=== PATIENT | male | born 1995 | race Caucasian/White ===

== ENCOUNTER 2016-12-10 14:34 | Emergency (ER) | payer MEDICAID ==
[~2016-12-10] VITALS: Ht 198.1 cm; Wt 102.7 kg
[2016-12-10 16:35] LABS: ASPARTATE AMINO TRANSFERASE 32 U/L (15-37); BLOOD UREA NITROGEN 17 mg/dL (7-18)
[2016-12-10 16:56] VITALS: BP 138/70
== END 2016-12-10 17:24 | disposition home or self-care (01) ==
LOC: ED 16:31
DX: F51.01 Primary insomnia (principal); R10.9 Unspecified abdominal pain
CPT/HCPCS: 36415; 74020; 80053; 85025